=== PATIENT | male | born 1955 | race Caucasian/White ===

== ENCOUNTER → 2016-06-20 | Outpatient (CLI) | payer BC ==
[~2016-06-20] MED LIST: SULF1TAB38 PO
--- NOTE | 2016-06-20 13:12 | DI ---
C EXAM: MRI SHOULDER RIGHT W/O CONTRAS LOCATION OF DICTATION: [facility] HISTORY: ITS.REASON: M25.511 PAIN IN RIGHT SHOULDER COMPARISON: No prior studies available for comparison. TECHNIQUE: Multiplanar/multisequence imaging of the right shoulder was performed in the sagittal, axial and coronal planes. FINDINGS: The osseous structures of the right shoulder are of normal contour and maintain normal anatomic alignment at the articular surfaces. There is moderate arthrosis at the right AC joint with subacromial spur formation that is associated with moderate narrowing of the supraspinatus outlet and moderate impingement sutures in greatest tendon. There is also moderate degenerative narrowing and chondromalacia at the glenohumeral articulation with associated subchondral cystic changes along the articular surface of the glenoid process. There is also subchondral cystic change along the superior lateral aspect of the humeral head at the level of the greater tuberosity. There is a small focus of subchondral marrow edema extending from the articular surface of the superior margin of the humeral head likely due to osteochondral injury. The supraspinatus tendon shows high-grade irregularity along the bursal surface of the supraspinatus tendon at the myotendinous junction suggesting high-grade near full-thickness bursal surface tear. There is also a high-grade near full-thickness bursal surface tear of the distal supraspinatus tendon at the insertion on the greater tuberosity. The infraspinatus and teres minor tendons appear intact. There is thickening and intermediate signal within the subscapularis tendon suggesting subscapularis tendinopathy. A small amount of fluid is seen in the subacromial/subdeltoid bursa and there is a small amount of fluid seen in the subcoracoid and subscapularis bursa. The long head of the biceps tendon appears intact and well situated within the bicipital groove. There is small amount of fluid in the biceps tendon sheath which appears slightly more than physiologic. Degenerative signal is seen within the superior glenoid pino but there is no obvious glenoid labral tear. The remaining myotendinous structures of the right shoulder girdle appear intact. . IMPRESSION: 1. High-grade near full-thickness bursal surface tears of the supraspinatus tendon one near the myotendinous junction and the second at the distal supraspinatus tendon insertion on the greater tuberosity. 2. Subscapularis tendinopathy. 3. Mild subacromial/subdeltoid and mild subscapularis/subcoracoid bursitis. 4. 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 5. There is a small focus of osteochondral injury along the superior margin of the humeral head underlying reactive marrow edema. .
== END ==
LOC: IMA 08:29
PROVIDERS: ATTEND Orthopaedic Surgery
DX: S46.011A Strain of muscle(s) and tendon(s) of the rotator cuff of right shoulder, initial encounter (principal); X58.XXXA Exposure to other specified factors, initial encounter; Y93.9 Activity, unspecified; Y92.9 Unspecified place or not applicable; Y99.9 Unspecified external cause status; M19.011 Primary osteoarthritis, right shoulder; M75.51 Bursitis of right shoulder; M75.81 Other shoulder lesions, right shoulder; M94.211 Chondromalacia, right shoulder; R93.7 Abnormal findings on diagnostic imaging of other parts of musculoskeletal system; M25.511 Pain in right shoulder